=== PATIENT | male | born 1955 | race Caucasian/White ===

== ENCOUNTER 2018-10-30 12:52 | Emergency (ER) | payer OTHER | END 2018-10-30 14:25 | disposition home or self-care (01) | LOC: FTE 12:52 | DX: S01.01XA Laceration without foreign body of scalp, initial encounter (principal); W26.8XXA Contact with other sharp object(s), not elsewhere classified, initial encounter; Y92.9 Unspecified place or not applicable | CPT/HCPCS: 12002; 70450; 99284-25 ==